=== PATIENT | female | born 1975 | race Caucasian/White ===

== ENCOUNTER 2016-02-24 16:16 | Emergency (ER) | payer OTHER ==
[2016-02-24 16:28] VITALS: BP 116/52; PULSE 75; TEMP 98; BMI 25.2
[2016-02-24 18:04] LABS: URINE APPEARANCE CLEAR; URINE BILIRUBIN NEGATIVE (NEGATIVE); URINE BLOOD NEGATIVE (NEGATIVE); URINE COLOR LTYELLOW; URINE GLUCOSE (UA) NEGATIVE (NEGATIVE); URINE KETONE NEGATIVE (NEGATIVE); URINE NITRITE NEGATIVE (NEGATIVE); URINE PROTEIN NEGATIVE (NEGATIVE); URINE UROBILINOGEN 2.0 E.U/dl E.U./dl (0.2-1.0)
[2016-02-24] MEDS ORDERED: KETOROLAC TROMETHAMINE 60 MG/2 ML VIAL IM ONE (18:07)
[2016-02-24] MEDS ORDERED: KETOROLAC TROMETHAMINE 60 MG/2 ML VIAL ONE (18:18)
--- NOTE | 2016-02-24 18:18 | PDOC ---
History of Present Illness - General Chief Complaint: Back Pain Stated Complaint: LT HAND NUMB/LOWER BACK PAIN Time Seen by Provider: 02/24/16 17:27 History Source: Patient Exam Limitations: No Limitations - History of Present Illness Initial Comments: 02/24/16 18:13 40 yr female with chronic neck pain,arthritis of spine, left shoulder injury, low back pain presents to ER with low back pain for one week. no fever, no abd pain , pt states the pain radiates to left buttock and thigh, worse with sitting to standing position. Pt denies injury states does frequent housework. Pt also c/o left hand pain for 3-4 months , worse at night. Pt has apt to have EMG done . 02/24/16 18:57 Severity: reports: mild Pain Location: reports: back Method of Injury: Yes: unknown Loss of Consciousness: no loss of consciousness Past History - Past Medical History Allergies/Adverse Reactions: Allergies Allergy/AdvReac Type Severity Reaction Status Date / Time No Known Allergies Allergy Verified 02/24/16 16:28 Home Medications: Ambulatory Orders Cyclobenzaprine HCl [Flexeril -] 10 mg PO TID PRN #21 tablet 02/24/16 Naproxen [Naprosyn -] 500 mg PO BID PRN #14 tablet 02/24/16 Other medical history: arthritis, left shoulder rotator cuff tear, herniated cervial spine disc, c - Psycho/Social/Smoking Cessation Hx Suicidal Ideation: No Smoking History: Never smoked Information on smoking cessation initiated: No Trauma Specific PMHX - Complaint Specific PMHX Arthritis: Yes Back Injury: Yes (years back ) Review of Systems - Review of Systems Able to Perform ROS?: Yes Is the patient limited [place]ian proficient: No Constitutional: No: Symptoms Reported HEENTM: No: Symptoms Reported Respiratory: No: Symptoms reported Cardiac (ROS): No: Symptoms Reported ABD/GI: No: Symptoms Reported : No: Symptoms Reported Musculoskeletal: Yes: See HPI, Back Pain *Physical Exam - Vital Signs Last Vital Signs Temp Pulse Resp BP Pulse Ox 98 F 75 18 116/52 100 02/24/16 16:26 02/24/16 16:26 02/24/16 16:26 02/24/16 16:26 02/24/16 16:26 - Physical Exam General Appearance: Yes: Nourished, Appropriately Dressed HEENT: positive: EOMI, ASAF, Normal ENT Inspection, TMs Normal, Pharynx Normal Neck: positive: Supple. negative: Tender Respiratory/Chest: positive: Lungs Clear, Normal Breath Sounds Cardiovascular: positive: Regular Rhythm, Regular Rate Female Pelvic Exam: negative: normal external exam Gastrointestinal/Abdominal: positive: Normal Bowel Sounds, Soft. negative: Tender Musculoskeletal: positive: Normal Inspection, Decreased Range of Motion (due to pain ). negative: CVA Tenderness, CVA Tenderness (R), CVA Tenderness (L), Muscle Spasm, Vertebral Tenderness Extremity: positive: Normal Capillary Refill, Normal Inspection, Normal Range of Motion, Other (left hand with no swelling, nv intact FROM ). negative: Tender, Pedal Edema, Swelling, Calf Tenderness, Erythema, Inflammation Integumentary: positive: Normal Color, Dry, Warm. negative: Pale, Rash Neurologic: positive: Fully Oriented, Alert, Normal Mood/Affect, Normal Response , Motor Strength 5/5. negative: Numbness, Sensory Deficit ED Treatment Course - ADDITIONAL ORDERS Additional order review: Laboratory Results 02/24/16 17:52 Urine HCG, Qual Negative Medical Decision Making - Medical Decision Making 02/24/16 18:19 cc: low back pain for one week worse with movement, radiates to left side lower back to burrock and thigh, has known history of sciatica will check UA for infection left hand pain at night for 3-4 months no acute trauma or nv deficit pt has apt with EMG/neuro r/o toradol if negative pt has orthopedist appoitment on 02/24/16 18:58 *DC/Admit/Observation/Transfer Diagnosis at time of Disposition: Low back pain Qualifiers: Chronicity: acute Back pain laterality: left Sciatica presence: with sciatica Sciatica laterality: sciatica of left side Qualified Code(s): M54.42 - Lumbago with sciatica, left side - Discharge Dispostion Disposition: HOME Condition at time of disposition: Good - Prescriptions Prescriptions: Cyclobenzaprine HCl [Flexeril -] 10 mg PO TID PRN #21 tablet PRN Reason: Muscle Spasms Naproxen [Naprosyn -] 500 mg PO BID PRN #14 tablet PRN Reason: Back Pain - Referrals Referrals: Taylor Willis [Primary Care Provider] - - Patient Instructions Additional Instructions: follow with your primary care doctor or with your orthopedist doctor this week apply ice pack to lower back every 2hrs for 20 minutes alternate with heating pad take flexeril for any muscle spasm DO NOT DRIVE, OPERATE MACHINERY OR DRINK ALCOHOL while taking this medication take naprosyn for pain to back return to ER for any worsening symptoms
[2016-02-24 18:27] LABS: URINE LEUK ESTERASE TRACE (NEGATIVE)
[2016-02-24 18:28] LABS: URINE MUCUS RARE; URINE RBC 1 /hpf (0-3); URINE WBC 10 /hpf (3-5)
== END 2016-02-24 18:58 | disposition home or self-care (01) ==
LOC: JERFT 16:16
PROC: 3E0233Z Introduction of Anti-inflammatory into Muscle, Percutaneous Approach (ICD-10-PCS; principal; 2016-02-24)
DX: M54.42 Lumbago with sciatica, left side (principal)
CPT/HCPCS: 81003; 81015; 84703; 96372; 99281-25

== ENCOUNTER 2016-08-26 21:34 | Emergency (ER) | payer OTHER ==
[2016-08-26 21:39] VITALS: BP 118/68; PULSE 59; TEMP 97.6; BMI 25.0
[2016-08-26] MEDS ORDERED: KETOROLAC TROMETHAMINE 60 MG/2 ML VIAL IM ONE (23:23)
[2016-08-26] MEDS ORDERED: KETOROLAC TROMETHAMINE 60 MG/2 ML VIAL ONE (23:29)
--- NOTE | 2016-08-27 00:05 | PDOC ---
History of Present Illness - General Chief Complaint: Pain Stated Complaint: NECK AND SHOULDER PAIN Time Seen by Provider: 08/26/16 22:50 - History of Present Illness Initial Comments: 08/27/16 00:01 CHIEF COMPLAINT: left neck/shoulder pain HISTORY OF PRESENT ILLNESS: 41 yo F with hx of asthma presents to ED with pain to neck and left shoulder. Patient states she has seen an orthopedist and had an MRI of her left shoulder and has been "dealing with this for the past 3 years " but today the pain worsened. She reports that she has done physical therapy and had steroid injections without relief. No recent travel or sick contacts. PAST MEDICAL HISTORY: Denies past medical history FAMILY HISTORY: Denies SOCIAL HISTORY:Denies tobacco, alcohol, illicit drug use. SURGICAL HISTORY: Denies ALLERGIES: No known drug allergies REVIEW OF SYSTEMS General/Constitutional: Denies fever or chills. Denies weakness, weight change. HEENT: Denies change in vision. Denies ear pain or discharge. Denies sore throat. Cardiovascular: Denies chest pain or shortness of breath. Respiratory: Denies cough, wheezing, or hemoptysis. Gastrointestinal: Denies nausea, vomiting, diarrhea or constipation. Denies rectal bleeding. Genitourinary: Denies dysuria, frequency, or change in urination. Musculoskeletal: Pain to L neck and shoulder. Skin and breasts: Denies rash or easy bruising. Neurologic: Denies headache, vertigo, loss of consciousness, or loss of sensation. PHYSICAL EXAM General Appearance: Well-appearing, appropriately dressed. No apparent distress. HEENT: EOMI, PERRLa. Respiratory/Chest: Lungs CTAB. Cardiovascular: RRR. S1, S2. Musculoskeletal/Extremities: Reproducible tenderness over left trapezius. Normal inspection. FROM of all extremities, normal capillary refill. Pelvis Stable. No CVA tenderness. No tenderness to extremities, pedal edema, swelling , erythema or deformity. Integumentary: Appropriate color, dry, warm. No cyanosis, erythema, jaundice or rash Neurologic: music coordinator II-XII intact. Fully oriented, alert. Appropriate mood/affect. Motor strength 5/5. No appreciable EOM palsy, facial droop or sensory deficit. Past History - Past Medical History Allergies/Adverse Reactions: Allergies Allergy/AdvReac Type Severity Reaction Status Date / Time No Known Allergies Allergy Verified 08/26/16 21:39 Home Medications: Ambulatory Orders Cyclobenzaprine HCl [Flexeril -] 10 mg PO TID PRN #21 tablet 02/24/16 Gabapentin 100 mg PO DAILY 08/26/16 Cyclobenzaprine HCl 7.5 mg PO HS PRN #5 tablet 08/27/16 Naproxen [Naprosyn -] 500 mg PO BID PRN #14 tablet 08/27/16 Other medical history: cervical disk problems - Psycho/Social/Smoking Cessation Hx Suicidal Ideation: No Smoking History: Never smoked *Physical Exam - Vital Signs Last Vital Signs Temp Pulse Resp BP Pulse Ox 97.6 F 59 L 18 118/68 99 08/26/16 21:36 08/26/16 21:36 08/26/16 21:36 08/26/16 21:36 08/26/16 21:36 ED Treatment Course - ADDITIONAL ORDERS Additional order review: Laboratory Results 08/26/16 22:33 Urine HCG, Qual Negative - Medications Given in the ED: ED Medications Discontinued Medications Generic Name Dose Route Start Last Admin Trade Name Ellie PRN Reason Stop Dose Admin Ketorolac Tromethamine 60 mg 08/26/16 23:23 08/26/16 23:32 Toradol Injection - IM 08/26/16 23:24 60 mg ONCE ONE Administration Medical Decision Making - Medical Decision Making 08/27/16 00:05 41 yo F with hx of asthma presents to ED with pain to neck and left shoulder. -60 mg Toradol Patient reassessed; at this time she is smiling and reports that her pain i smuch better and is ready to go home. *DC/Admit/Observation/Transfer Diagnosis at time of Disposition: Muscle spasm - Discharge Dispostion Disposition: HOME Condition at time of disposition: Stable Admit: No - Prescriptions Prescriptions: Cyclobenzaprine HCl 7.5 mg PO HS PRN #5 tablet PRN Reason: Muscle Spasms Naproxen [Naprosyn -] 500 mg PO BID PRN #14 tablet PRN Reason: Back Pain - Referrals Referrals: Taylor Willis [Primary Care Provider] - Nick Coe MD [Staff Physician] - - Patient Instructions Printed Discharge Instructions: DI for Muscle Strain Additional Instructions: Please take medication as prescribed; do not drive or operate machinery while taking cyclobenzaprine. Please follow up with orthopedics as discussed. If you experience any chest pain, shortness of breath, fever, neck stiffness, numbness to your arms, or any new or worsening symptoms, please return to the ER.
== END 2016-08-27 00:08 | disposition home or self-care (01) ==
LOC: JERFT 21:34 → JER 21:34
PROC: 3E0233Z Introduction of Anti-inflammatory into Muscle, Percutaneous Approach (ICD-10-PCS; principal; 2016-08-26)
DX: M62.838 Other muscle spasm (principal)
CPT/HCPCS: 84703; 99282-25